=== PATIENT | female | born 1935 | race Caucasian/White ===

== ENCOUNTER 2018-08-26 15:51 | Emergency (ER) | payer MEDICARE ==
[~2018-08-26] VITALS: Ht 152.4 cm; Wt 75.0 kg
[~2018-08-26 15:51] MED LIST: ASPI-496 PO; ATEN50TA41 PO; ENOX40SY4 SQ; OXYC5SOL8 PO; ROSU10TA PO; SERT50TA5 PO; TRAM50TA2 PO
[2018-08-26] MEDS ORDERED: PLEASE ENTER HEIGHT AND WEIGHT MC SCH (16:30)
[2018-08-26] MEDS ORDERED: HYDROcodone/APAP 5/325 TABLET PO ONE ×2 (16:30→18:30)
[2018-08-26] MEDS ORDERED: HYDROcodone/APAP 5/325 TABLET ONE ×2 (16:32→18:24)
[2018-08-26] MEDS ORDERED: tolterodine PO (17:23)
[2018-08-26] MEDS ORDERED: GLUC15006 PO (17:23)
[2018-08-26] MEDS ORDERED: GABA100C PO (17:23)
[2018-08-26] MEDS ORDERED: ALEN70TA5 PO (17:23)
[2018-08-26] MEDS ORDERED: [UNRECOGNIZED DRUG - OTHER] PO (17:23)
[2018-08-26] MEDS ORDERED: MULT-224 PO (17:23)
[2018-08-26] MEDS ORDERED: ASPI-515 PO (17:23)
[2018-08-26] MEDS ORDERED: cranberry PO (17:23)
[2018-08-26] MEDS ORDERED: probiotic 10 PO (17:23)
[2018-08-26] MEDS ORDERED: ROSU20TA PO (17:23)
[2018-08-26] MEDS ORDERED: ATEN25TA PO (17:23)
[2018-08-26] MEDS ORDERED: CHOL2000 PO (17:23)
[2018-08-26] MEDS ORDERED: SERT100T5 PO (17:23)
[2018-08-26 18:52] VITALS: BP 162/82
== END 2018-08-26 18:54 | disposition home or self-care (01) ==
LOC: ED 18:23
DX: S40.011A Contusion of right shoulder, initial encounter (principal); E78.00 Pure hypercholesterolemia, unspecified; I25.10 Atherosclerotic heart disease of native coronary artery without angina pectoris; I10 Essential (primary) hypertension; R51 Headache; W18.30XA Fall on same level, unspecified, initial encounter; Y93.89 Activity, other specified; Y99.8 Other external cause status; Y92.009 Unspecified place in unspecified non-institutional (private) residence as the place of occurrence of the external cause
CPT/HCPCS: 29105; 70450; 72125; 99284

== ENCOUNTER 2021-01-11 21:57 | Emergency (ER) | payer MEDICARE ==
[~2021-01-11] VITALS: Ht 152.4 cm; Wt 65.0 kg
[~2021-01-11 21:57] MED LIST changes: +ALEN70TA77 PO; +ASPI-963 PO; +ATEN25TA PO; +CHOL2000 PO; +GABA100C PO; +GLUC15006 PO; +MULT-642 PO; -ROSU10TA PO; +ROSU10TA2 PO; +ROSU20TA2 PO; +SERT100T32 PO; +SERT50TA28 PO; -SERT50TA5 PO; +[UNRECOGNIZED DRUG - OTHER] PO; +cranberry PO; +probiotic 10 PO; +tolterodine PO
[2021-01-11] MEDS ORDERED: SODIUM CHLORIDE 0.9% 1,000ML IVBOLUS ONE (23:00)
[2021-01-11] MEDS ORDERED: ONDANSETRON 2MG/ML, 2ML IVPush ONE (23:00)
[2021-01-11 23:39] LABS: BASOPHILS % (AUTO) 1 % (0-1); EOSINOPHILS % (AUTO) 2 % (1-7); LYMPHOCYTES % (AUTO) 21 % (22-44); MEAN CORPUSCULAR HEMOGLOBIN 30.6 pg (27.0-34.8); MEAN CORPUSCULAR HGB CONC 33.3 g/dL (32.4-35.8); MEAN PLATELET VOLUME 7.3 fL (7.4-10.4); MONOCYTES % (AUTO) 11 % (2-9); NEUTROPHILS % (AUTO) 65 % (42-75); PLATELET COUNT 185 x10^3/uL (130-400); RED BLOOD COUNT 5.08 x10^6/uL (3.82-5.3); RED CELL DISTRIBUTION WIDTH 15.4 % (9.6-15.2)
[2021-01-11 23:45] LABS: MD NO
[2021-01-11 23:50] LABS: ALBUMIN 3.9 g/dL (3.4-5.0); ANION GAP 8 mmol/L (5-15); CALCIUM 9.3 mg/dL (8.5-10.1); CHLORIDE 111 mmol/L (98-107)
[2021-01-11 23:53] LABS: ALANINE AMINOTRANSFERASE 23 U/L (12-78); ALKALINE PHOSPHATASE 75 U/L (45-117); CREATININE 0.71 mg/dL (0.55-1.02); TOTAL PROTEIN 7.6 g/dL (6.4-8.2)
[2021-01-12] MEDS ORDERED: ONDANSETRON 2MG/ML, 2ML ONE (00:14)
[2021-01-12] MEDS ORDERED: OMNIPAQUE 350 MG/ML, 100ML BOTTLE ONE (00:30)
[2021-01-12 00:32] LABS: MICROSCOPIC INDICATED
[2021-01-12] MEDS ORDERED: CEFDINIR 300 MG CAPSULE ONE (01:55)
[2021-01-12] MEDS ORDERED: CEFDINIR 300 MG CAPSULE PO ONE (02:00)
[2021-01-12 02:20] VITALS: BP 190/93
== END 2021-01-12 02:39 | disposition home or self-care (01) ==
LOC: ED 22:48
DX: N30.00 Acute cystitis without hematuria (principal); R19.7 Diarrhea, unspecified; I49.3 Ventricular premature depolarization; R53.1 Weakness; R10.9 Unspecified abdominal pain; I10 Essential (primary) hypertension; E78.5 Hyperlipidemia, unspecified; E78.00 Pure hypercholesterolemia, unspecified; I25.10 Atherosclerotic heart disease of native coronary artery without angina pectoris; Z87.891 Personal history of nicotine dependence
CPT/HCPCS: 36415; 71045; 74177; 80053; 81001; 83605; 83690; 85025; 87086; 93005; 96360; 99285; J7030; Q9967